=== PATIENT | female | born 1995 | race Hispanic/Latino ===

== ENCOUNTER 2020-06-21 15:47 | Emergency (ER) | payer OTHER, SELFPAY ==
[2020-06-21 15:54] VITALS: BP 115/65; PULSE 118; RESP 20; TEMP 36.6; O2SAT 99
--- NOTE | 2020-06-21 16:52 | DI.RAD.S_ITS ---
PROCEDURE: XR CHEST 2V INDICATIONS: r/o EFB TECHNIQUE: 2 views of the chest were acquired. COMPARISON: None. FINDINGS: Surgical changes and devices: None. Lungs and pleura: Lungs are clear. No pleural effusions or pneumothorax. Mediastinum: Mediastinal contours are normal. Heart size is normal. Bones and chest wall: No suspicious bony abnormalities. Soft tissues appear unremarkable. IMPRESSION: No acute cardiopulmonary findings. No unexpected radiopaque foreign bodies. Dictated by: Kitty Shaver M.D. on 06/21/2020 at 17:17 Approved by: Kitty Shaver M.D. on 06/21/2020 at 17:17
--- NOTE | 2020-06-21 19:35 | ED_ITS ---
HPI - Abdominal Pain <REGINA FigueroaP - Last Filed: 06/21/20 20:56> General Chief Complaint: Abdominal Pain Stated Complaint: lump in throat, causing some SOB Time Seen by Provider: 06/21/20 19:20 Source: patient Mode of arrival: Ambulatory Limitations: no limitations History of Present Illness HPI narrative: This is a 25 year female, nonsmoker, who has past medical history significant for anxiety and pre diabetes presents to ED with chief complain of feeling a lump in the throat. Patient reports she had eaten hamburger and chips and threw shortly after. Since then, patient feels as there's something in her throat and tight and it causing her anxious. Patient had acid reflux before but this feels different. Patient denies recent cough, runny nose, coughing, difficulty breathing. Patient states her voice has not changed. Patient had eaten peanut butter and jelly sandwich without difficulty today. She is able to manage her saliva without difficulty. Patient denies chest pain, breathing difficulty, or lightheadedness. In the past, she was told she has 2 small nodules in her thyroid but is not currently taking any thyroid medications. Patient denies increase in neck size. Related Data Allergies Allergy/AdvReac Type Severity Reaction Status Date / Time No Known Drug Allergies Allergy Verified 06/21/20 15:57 Review of Systems <REGINA FigueroaP - Last Filed: 06/21/20 20:56> Review of Systems Narrative: General: Denies fever, chills, fatigue, malaise, sweats. HEENT: See HPI Respiratory: Denies dyspnea, cough, wheezing, hemoptysis, sputum. Cardiovascular: Denies chest pain, palpitations, orthopnea, edema. Gastrointestinal: See HPI : Denies dysuria, frequency, incontinence, hematuria, urinary retention. Musculoskeletal: Denies weakness, joint pain or bony pain. Skin: Denies rash, skin lesions, or other. Neurologic: Denies weakness, headache, numbness, change in speech, confusion, seizures, incoordination. Psychiatric: No concerning psychosocial issues. 12-point review of systems is negative except for those stated above. [facility] Last Filed: 06/21/20 20:56> Medical History Anxiety (Acute) Pre-diabetes (Acute) Thyroid nodule (Acute) Surgical History No pertinent past surgical history (Acute) Social History Smoking Status: Never smoker Smoking Status: Never smoker Substance Use Type: does not use Exam <TAYLOR Figueroa - Last Filed: 06/21/20 20:56> Narrative Exam Narrative: GEN: Alert, oriented x 3, well nourished, and in no acute distress. Head: Normal cephalic, atraumatic. No scalp or temporal tenderness, palpable mass or rash. EYES: Pupils are equal, round, and reactive to light and accommodation. Extraocular muscles are intact bilaterally. There is no subconjunctival hemorrhage, exudate and sclera non-icteric. ENT: Hearing grossly intact. Facial sinuses nontender to palpate. Mucous membrane moist, no mucosal lesion. Throat without erythema, tonsillar hypertrophy or exudate. Uvula in midline, airway patent. Patient is able to s wallow warm ankit rae without vomiting. No muffled voice. Patient is able to manage his saliva without difficulty. Neck: Trachea in midline. No JVD, non-tender without lymphadenopathy. No masses or thyroid megaly. Supple, non-tender and no meningeal signs. CARDIAC: Normal regular rate and rhythm without murmurs, gallops, or rubs. No chest wall tenderness. No peripheral edema, cyanosis or pallor. Capillary refill is less than 2 seconds. RESPIRATORY: Lungs are clear to auscultate bilaterally. No cough, wheezes, rales, or rhonchi. No stridor, respiratory distress, increase work of b reathing, or accessary muscle used. ABD: Abdomen soft, nontender and non-distended. No guarding or rebound tenderness to palpate. Bowel sounds are normal in all 4 quadrants. There is no palpable masses or organomegaly. EXT: Full painless ROM of all extremities with no loss of sensation, strength, effusion or edema. SKIN: Warm, dry, normal color for patient. No erythema, lesions or rash over visible areas. BACK: Nontender without deformity or crepitance. No flank tenderness. NEUROLOGICAL: Alert and oriented to place, time and person. Sensation and motor function intact bilaterally. No facial droops, dysphasia. PSYCHIATRIC: Appears to be anxious and fidgety. Initial Vital Signs Initial Vital Signs: Vital Signs Temperature 97.8 F 06/21/20 15:54 Pulse Rate 118 H 06/21/20 15:54 Respiratory Rate 06/21/20 15:54 Blood Pressure 115/65 06/21/20 15:54 Pulse Oximetry 99 06/21/20 15:54 <Patricia Verduzco MD - Last Filed: 06/22/20 03:33> Initial Vital Signs Initial Vital Signs: Vital Signs Temperature 97.8 F 06/21/20 15:54 Pulse Rate 118 H 06/21/20 15:54 Respiratory Rate 06/21/20 15:54 Blood Pressure 115/65 06/21/20 15:54 Pulse Oximetry 99 06/21/20 15:54 Scores <TAYLOR Figueroa - Last Filed: 06/21/20 20:56> GCS Finley coma scale eye opening: Spontaneous Iliana coma scale verbal response: Orientated Finley coma scale motor response: Obey commands Finley coma scale total score: 15 Course <TAYLOR Figueroa - Last Filed: 06/21/20 20:56> Orders Ordered: Discontinued Medications Al Hydrox/Mg Hydrox/Simethicone 20 ml/ Lidocaine HCl 15 ml 0 ml PO NOW ONE Stop: 06/21/20 19:35 Last Admin: 06/21/20 19:58 Dose: 30 ml Documented by: TANI Lorazepam (Ativan) 0.5 mg PO NOW ONE Stop: 06/21/20 20:30 Last Admin: 06/21/20 20:44 Dose: 0.5 mg Documented by: TANI Ondansetron HCl (Zofran Odt) 4 mg SL NOW ONE Stop: 06/21/20 19:35 Last Admin: 06/21/20 19:58 Dose: 4 mg Documented by: TANI Consultations Consultation #1: Dr. Verduzco consulted with treatment plan and disposition with physical exam. Time: 20:55 Vital Signs Vital signs: Vital Signs - 8 hr 06/21/20 19:42 06/21/20 20:07 06/21/20 20:57 Temperature 97.4 F L Pulse Rate 96 H 97 H 88 Respiratory Rate 20 22 16 Blood Pressure 122/60 Pulse Oximetry 100 100 100 <Patricia Verduzco MD - Last Filed: 06/22/20 03:33> Orders Ordered: Discontinued Medications Al Hydrox/Mg Hydrox/Simethicone 20 ml/ Lidocaine HCl 15 ml 0 ml PO NOW ONE Stop: 06/21/20 19:35 Last Admin: 06/21/20 19:58 Dose: 30 ml Documented by: TANI Lorazepam (Ativan) 0.5 mg PO NOW ONE Stop: 06/21/20 20:30 Last Admin: 06/21/20 20:44 Dose: 0.5 mg Documented by: TANI Ondansetron HCl (Zofran Odt) 4 mg SL NOW ONE Stop: 06/21/20 19:35 Last Admin: 06/21/20 19:58 Dose: 4 mg Documented by: TANI Vital Signs Vital signs: Vital Signs - 8 hr 06/21/20 19:42 06/21/20 20:07 06/21/20 20:57 Temperature 97.4 F L Pulse Rate 96 H 97 H 88 Respiratory Rate 20 22 16 Blood Pressure 122/60 Pulse Oximetry 100 100 100 MDM - Abdominal Pain <TAYLOR Figueroa - Last Filed: 06/21/20 20:56> Differential Diagnosis Differential diagnosis: Likely other (Esophageal irritation, foreign body in esophageal, thyroid nodule, anxiety) Medical Records Attestation: I reviewed the patient's medical records. Imaging Data Chest x-ray: Radiologist's Impression: [address] [address] XRay Report Signed Patient: Cora Barrientos GMR#: [id number] : 1995Acct:[id number] Age/Sex: 25 / FDate of Service: 06/21/20 Loc: ED Accession Number: [id number] Procedure: XR chest 2V Ordering Provider: Pamela Ramos D.O. PROCEDURE: XR CHEST 2V INDICATIONS: r/o EFB TECHNIQUE: 2 views of the chest were acquired. COMPARISON: None. FINDINGS: Surgical changes and devices: None. Lungs and pleura: Lungs are clear. No pleural effusions or pneumothorax. Mediastinum: Mediastinal contours are normal. Heart size is normal. Bones and chest wall: No suspicious bony abnormalities. Soft tissues appear unremarkable. IMPRESSION: No acute cardiopulmonary findings. No unexpected radiopaque foreign bodies. Dictated by: Kitty Shaver M.D. on 06/21/2020 at 17:17 Approved by: Kitty Shaver M.D. on 06/21/2020 at 17:17 [facility] Narrative Medical decision making narrative: This is a 25 year female who presents to ED with chief complain of foreign body sensation in her throat after she had vomited shortly after hamburgers and chips yesterday. Patient provided with can of warm soda which she was able to tolerate without nausea or vomiting. Although patient had vomited GI cocktail, she was able to tolerate water and pudding afterward. She denies increase in neck size, short of breath, chest pain, dizziness. She is able to manage saliva without vomiting since yesterday. At this time, there is low risk for foreign body in esophageal or obstruction. Likely she has irritated esophageal lining. Chest x-ray was negative for acute findings including radial plaque foreign body. Medicate patient with small dose of Ativan before discharged to home. Patient advised to follow-up with primary care physician on small thyroid nodule since this can also cause fullness in her throat although she denies increasing neck size recently. No labs were done at this time given patient did not vomit and was able to manage oral secretion without difficulty. Return precautions were discussed with patient and she verbalized understanding in agreement with the treatment plan. Discharge Plan Departure Patient Disposition: Home Clinical Impression: Foreign body sensation in throat Discharge Date/Time: 06/21/20 20:57 Activity Restrictions/Additional Instructions: You have been diagnosed with [foreign body sensation and throat discomfort after vomitting. Your able to tolerate liquid and pudding without difficulty.]. What to do: *Take your medications as directed. Avoid spicy, acidic food. Please eat bland and soft diet for next couple of days. *Follow up with your primary care provider in 2-3 days, call for an appointment. Let them know you were seen in the ED and that we asked you to be seen in follow up. *Return to ED if you have any new, worsening, or concerning symptoms, such as [chest pain, breathing difficulty, lightheadedness, unable to tolerate fluids or food, fever, or any acute concerns]. Referrals: [facility] [Outside] <Patricia Verduzco MD - Last Filed: 06/22/20 03:33> Cosign ED Attending Cosignature Attestation: I was immediately available in the department for consultation throughout this patient's visit. I agree with documentation as above. Patricia Verduzco MD
[2020-06-21 19:42] VITALS: BP 122/60; PULSE 96; RESP 20; TEMP 36.3; O2SAT 100
[2020-06-21] MEDS: ONDANSETRON 4 MG ODT SL (19:58)
[2020-06-21] MEDS: MAG HYDROX/ALUMINUM/SIMETH SUS 20 ML, LIDOCAINE VISCOUS 2% 15 ML PO (19:58)
[2020-06-21 20:07] VITALS: PULSE 97; RESP 22; O2SAT 100
--- NOTE | 2020-06-21 20:07 | PC.NURSE ---
Patient sipping on ankit rae with no difficulty. Tried GI cocktail, gag with drinking meds, vomiting immediately after consumption. the lump feels worse, like my throat is closing
[2020-06-21] MEDS: LORazepam 0.5 MG TABLET PO (20:44)
[2020-06-21 20:57] VITALS: PULSE 88; RESP 16; O2SAT 100
== END 2020-06-21 20:57 | disposition home or self-care (01) ==
PROVIDERS: Emergency Provider Nurse Practitioner Family
DX: R09.89 Other specified symptoms and signs involving the circulatory and respiratory systems (principal); R06.02 Shortness of breath
CPT/HCPCS: 71046; 99283

== ENCOUNTER 2020-08-14 11:02 | Emergency (ER) | payer OTHER, SELFPAY ==
[2020-08-14 11:04] VITALS: BP 127/77; PULSE 96; RESP 20; TEMP 36.2; O2SAT 99
--- NOTE | 2020-08-14 11:17 | ED_ITS ---
HPI - URI/Sore Throat General Chief Complaint: Upper Respiratory Symptoms Stated Complaint: wants tested for covid Time Seen by Provider: 08/14/20 11:04 Source: patient Mode of arrival: Ambulatory Limitations: no limitations History of Present Illness HPI Narrative: This is a 25-year-old female who comes to the emergency department for concern for COVID. Patient has multiple potential contacts including her who has been in contact with COVID positive patients at his work place on the [address] [employer], he does regularly wear a mask but they are often within 6 feet of each other. She also had family visiting from other areas, some of those family members have returned home but they tested positive for COVID. Patient has not had fevers, no chills. She had a mild cough which has been nonproductive. Occasional shortness of breath. No chest pain or pressure. No vomiting. No diarrhea or constipation. No urinary symptoms. No swelling in her extremities. She has had several days of symptoms. She has been attempting to self isolate at home away from her family. She denies any medical problems. She has a history of cholecystectomy. No tobacco, she denies alcohol or illicit. Related Data Allergies Allergy/AdvReac Type Severity Reaction Status Date / Time No Known Drug Allergies Allergy Verified 06/21/20 15:57 Review of Systems Review of Systems ROS Unobtainable: All systems reviewed & are unremarkable except as noted in HPI and below Patient History Medical History (Updated 08/14/20 @ 11:58 by Pamela Ramos DO) Anxiety Pre-diabetes Thyroid nodule Surgical History No pertinent past surgical history Social History Smoking Status: Never smoker Smoking Status: Never smoker alcohol intake frequency: 0-2 drinks per day Substance Use Type: does not use Exam Narrative Exam Narrative: GEN: well nourished, well appearing female, alert and oriented x 3, patient appears to be in no acute distress. HEENT: Atraumatic, pupils are equal round reactive to light, extraocular movements are intact. HEART: Regular rate and rhythm without murmur, clicks, rubs. No carotid bruits, pulses are equal in upper and lower extremities LUNGS:Lungs clear to auscultation, no wheezes, rales, crackles, chest moves s ymmetrically ABD:bowel sounds normal, soft, non-tender, no guarding, rebound, rigidity, no masses noted, no hepatosplenomegaly MSCL: Non-tender, full range of motion, normal gait NEURO:CN 2-12 intact, sensation normal SKIN: No rash, erythema or other skin changes appreciated. Initial Vital Signs Initial Vital Signs: Vital Signs Temperature 97.2 F L 08/14/20 11:04 Pulse Rate 96 H 08/14/20 11:04 Respiratory Rate 20 08/14/20 11:04 Blood Pressure 127/77 08/14/20 11:04 Pulse Oximetry 99 08/14/20 11:04 Course Orders Ordered: ED Orders 08/14/20 11:09 COVID19 Stat Vital Signs Vital signs: Vital Signs - 8 hr 08/14/20 12:10 Pulse Rate 69 Respiratory Rate 18 Blood Pressure 130/72 Pulse Oximetry 98 MDM - URI/Sore Throat Lab Data Labs: Lab Results 08/14/20 Range/Units 11:09 SARS-CoV-2 (PCR) Negative (Negative) MDM Narrative Medical decision making narrative: Patient has mild upper respiratory symptoms including cough, nasal congestion and occasional shortness of breath. She has no other concerning systemic changes. COVID swab is negative and patient is to continue with symptomatic care. Discharge Plan Departure Patient Disposition: Home Clinical Impression: Upper respiratory infection Instructions: DI for Viral Upper Respiratory Infection -- Adult, Can COVID-19 be prevented? Activity Restrictions/Additional Instructions: Your lab test today is negative for coronavirus this does not 100% rule out COVID but is reassuring. You do have symptoms of a viral infection at this time and is recommended that you continue to socially distance, wear a mask and follow recommendations from the department of health. You can continue [id number] therapies as prescribed. *What to do: * per recommendations from the CDC and the [facility] Department of Health * stay home except to get medical care. Restrict activities outside your home, except for getting medical care. Do not go to work, school, or public areas. Avoid using public transportation, ride sharing, or taxis. * separate yourself from other people in your home. * call ahead before visiting your doctor * Wear a face mask * Cover your coughs and sneezes * Clean your hands often * Avoid sharing household items * Clean all high-touch services every day * Monitor your symptoms and seek prompt medical attention if your illness is worsening, particularly with difficulty in breathing.
[2020-08-14 11:54] LABS: COVID19 -Nasal RAPID Negative (Negative)
[2020-08-14 12:10] VITALS: BP 130/72; PULSE 69; RESP 18; O2SAT 98
== END 2020-08-14 12:13 | disposition home or self-care (01) ==
PROVIDERS: Emergency Provider Emergency Medicine
DX: J06.9 Acute upper respiratory infection, unspecified (principal); F41.9 Anxiety disorder, unspecified; R73.03 Prediabetes; E04.1 Nontoxic single thyroid nodule; Z20.822 Contact with and (suspected) exposure to COVID-19; R06.02 Shortness of breath; R09.81 Nasal congestion; R05 Cough
CPT/HCPCS: 87635; 99281; 99282